=== PATIENT | male | born 1955 | race Caucasian/White ===

== ENCOUNTER 2024-11-17 08:03 | Observation (INO) ==
--- NOTE | 2024-11-04 13:24 | PAT Medication Instructions ---
Medication Instructions Date of Service November 04, 2024 Home Medications aspirin 81 mg tablet,delayed release 81 mg PO QAM jsayixj-jfifqsadndmyd-bnfjcmri 250 mg-250 mg-65 mg tablet (Excedrin Extra Strength) 1 tab PO Q6H PRN Pain cyanocobalamin (vitamin B-12) 2,000 mcg tablet,extended release 4,000 mcg PO DAILY hydralazine 25 mg tablet 25 mg PO TID lisinopril 5 mg tablet 5 mg PO PM metoprolol succinate 50 mg tablet,extended release 24 hr 50 mg PO BID nifedipine 30 mg tablet,extended release 24 hr 30 mg PO QAM pravastatin 40 mg tablet 40 mg PO QAM ASK your prescriber and surgeon aspirin 81 mg tablet,delayed release 81 mg PO QAM yjelzzi-ribjxkwhheunc-gertpjts 250 mg-250 mg-65 mg tablet (Excedrin Extra Strength) 1 tab PO Q6H PRN Pain DO NOT take the morning of surgery cyanocobalamin (vitamin B-12) 2,000 mcg tablet,extended release 4,000 mcg PO DAILY Take morning of surgery With a small sip of water, OTHERWISE NOTHING TO EAT OR DRINK AFTER MIDNIGHT: hydralazine 25 mg tablet 25 mg PO TID metoprolol succinate 50 mg tablet,extended release 24 hr 50 mg PO BID nifedipine 30 mg tablet,extended release 24 hr 30 mg PO QAM pravastatin 40 mg tablet 40 mg PO QAM Take evening before surgery hydralazine 25 mg tablet 25 mg PO TID lisinopril 5 mg tablet 5 mg PO PM metoprolol succinate 50 mg tablet,extended release 24 hr 50 mg PO BID Other Notes If you have any questions please call us at [phone] or [phone] or [phone] or [phone]
--- NOTE | 2024-11-09 14:58 | Anesthesiology Consultation ---
Date of Service November 09, 2024 Assessment & Plan (1) Encounter for pre-operative examination: - awaiting: - final surgeon ordered medical clearance, Deepak FISHER-PAT results to be faxed to office. - surgeon ordered PCP clearance 11/11/24: "...anterior cervical discectomy and fusion...may be cleared for upcoming procedure providing that his presurgical labs were within reasonable parameters and no significant EKG abnormalities...considered moderate risk..." - cardiology office clearance 11/03/24: "...cleared for proposed procedure at low cardiac risk based on reviewed Ck criteria..." Chart Review Chart Review: Pending: Refer to Additional Notes / Consult section and Patient seen in Pre Admission Testing Teaching & Discussion Pre-Anesthesia Teaching/Discussion Notes: Instructed NPO after midnight before surgery, except medications with 15 cc of water. Medication instructions provided according to the PAT guidelines. History Surgery Operation Date: 11/17/24 12:25 Proposed Procedures p C3-C4 Anterior Cervical Discectomy and Fusion - Benny Irvin DO Height/Weight Height: 6 ft Weight: 63.1 kg Allergies Allergy/AdvReac Type Severity Reaction Status Date / Time No Known Allergies Verified 11/04/24 12:18 Medications Home Medications Medication Instructions Recorded Confirmed Last Taken aspirin 81 mg tablet,delayed 81 mg PO QAM 11/04/24 11/04/24 Unknown release ldkifcp-znzjenamldxpu-vlbgygvd 250 1 tab PO Q6H PRN Pain 11/04/24 11/04/24 Unknown mg-250 mg-65 mg tablet (Excedrin Extra Strength) hydralazine 25 mg tablet 25 mg PO TID 11/04/24 11/04/24 Unknown lisinopril 5 mg tablet 5 mg PO PM 11/04/24 11/04/24 Unknown metoprolol succinate 50 mg 50 mg PO BID 11/04/24 11/04/24 Unknown tablet,extended release 24 hr nifedipine 30 mg tablet,extended 30 mg PO QAM 11/04/24 11/04/24 Unknown release 24 hr pravastatin 40 mg tablet 40 mg PO QAM 11/04/24 11/04/24 Unknown Past Medical History Medical History (Updated 11/09/24 @ 15:06 by Tatiana Pérez PA-C) Arthritis Chronic obstructive pulmonary disease no inhalers, well controlled per pt, just coughs "from time to time" DDD (degenerative disc disease), lumbar History of myocardial infarction (~2019) 2019 > follows with Dr. Bailey in [place] Hyperlipidemia Hypertension controlled, stable per pt Numbness of legs from neck pain per pt Patient denies h/o stroke, seizures, DM, blood clots/DVTs or blood transfusions. Exercise / Class Metabolic Activity II 4-5 Yardwork/Stairs/Walk up hill (denies chest discomfort or shortness of breath with one flight of stairs) Past Surgical History Surgical History History of colonoscopy Hx of cervical spine surgery with hardware, unsure of numbers, ROM limited to left side Hx of hand surgery right Hx of inguinal hernia repair Past Anesthesia History No Hx of Anesthesia Complications and No Family Hx of Anesthesia Complications History of PONV No Hx of PONV and No Hx of Motion Sickness Social History Smoking Status: Current every day smoker Smoking cigarettes per day: "few per day" > advised Do You Dip or Chew Tobacco: No Hx Alcohol Use: No Hx Substance Use: No substance use type: does not use Review of Systems Snoring, denies witnessed apneas. Patient denies chest pain, shortness of breath, dyspnea on exertion, reflux, fever, chills, cough, wheezing, or palpitations. Physical Exam Vital Signs Vitals BP 143/76 P 61 TEMP 98.3 SP02 94% on RA RESP 18 Physical Patient resting comfortably in chair in no acute distress, alert and oriented, responding appropriately throughout visit Full cervical extension range of motion without pain TMD 3.5 finger breadths Mallampati Score 2 Dentition: multiple missing teeth, denies chipped or loose teeth, caps/crowns, implants or bridges Lungs: normal respiratory effort. Good air movement, clear throughout to auscultation, no adventitious breath sounds Cardiac: regular rate and rhythm, no murmurs noted Carotid arteries: negative bruit bilat Lab Results Anesthesia Preop Results Results Anesthesia Widget: WBC 7.18 K/ul (4.8-10.8) 11/09/24 Hgb 15.7 g/dl (14.0-18.0) 11/09/24 Hct 44.5 % (42.0-52.0) 11/09/24 Plt 243 K/uL (130-400) 11/09/24 Na 142 mmol/L (136-145) 11/09/24 K 3.7 mmol/L (3.5-5.1) 11/09/24 Cl 107 mmol/L (98-107) 11/09/24 CO2 30 mmol/L (21-32) 11/09/24 BUN 20 mg/dl (6-23) 11/09/24 Creat 1.47 mg/dl (0.6-1.4) H 11/09/24 Glucose Level 104 mg/dl (70-99(Fasting)) H 11/09/24 PT 11.2 Seconds (9.0-12.0) 11/09/24 PTT 27 Seconds (21-31) 11/09/24 INR 1.0 (0.9-1.1) 11/09/24 Urine Color Dark Yellow 11/09/24 Urine Appearance Clear (Clear) 11/09/24 Urine pH 5.5 (4.5-7.5) 11/09/24 Urine Specific [place] 1.026 (1.000-1.030) 11/09/24 Urine Protein 2+ (Negative) H 11/09/24 Urine Glucose (UA) Negative (Negative) 11/09/24 Urine Ketones Trace (Negative) H 11/09/24 Urine Blood Negative (Negative) 11/09/24 Urine Nitrite Negative (Negative) 11/09/24 Urine Bilirubin Negative (Negative) 11/09/24 Urine Urobilinogen Negative (Negative) 11/09/24 Urine Leukocyte Esterase Negative (Negative) 11/09/24 Urine WBC (Auto) 0-5 /hpf (0-5) 11/09/24 Urine RBC (Auto) 3-5 /hpf (0-2) H 11/09/24 Urine Hyaline Casts (Auto) 3-5 /lpf (0-2) H 11/09/24 Urine Epithelial Cells (Auto) 0-2 /hpf (0-2) 11/09/24 Urine Bacteria (Auto) None Seen (None Seen) 11/09/24 Blood Type A Positive 11/09/24 Antibody Screen NEGATIVE 11/09/24 Testing Electrocardiogram Date: 11/09/24 Sinus bradycardia, rate 56 bpm Left axis deviation RBBB Chest X-Ray Date: 11/09/24 No acute findings.
[2024-11-17] MEDS ORDERED: LIDOCAINE 2% 2 ML VIAL/AMP(20MG/ML) INFIL ONE (08:31)
[2024-11-17] MEDS ORDERED: DEXAMETHASONE SOD INJ 4 MG/ML VIAL ONE (08:31)
[2024-11-17] MEDS ORDERED: PROPOFOL IV EMULSION 10 MG/ML 20 ML VIAL IV ONE (08:31)
[2024-11-17] MEDS ORDERED: ROCURONIUM BROMIDE 10 MG/ML 5 ML VIAL IV ONE (08:31)
[2024-11-17] MEDS ORDERED: ONDANSETRON INJ 2 MG/ML 2 ML VIAL ONE (08:31)
[2024-11-17] MEDS ORDERED: MIDAZOLAM HCL 1 MG/ML 2ML VIAL ONE (08:32)
[2024-11-17] MEDS ORDERED: SUGAMMADEX SODIUM 200 MG/2 ML VIAL IV ONE (08:32)
[2024-11-17] MEDS: LR 15ML/HR IV SCH (08:45)
[2024-11-17] MEDS: GABAPENTIN 300 MG CAP PO SCH (08:45)
[2024-11-17] MEDS: CeleBREX 200 MG CAP PO SCH (08:45)
[2024-11-17] MEDS: LR 60ML/HR IV SCH (08:45)
[2024-11-17] MEDS: ACETAMINOPHEN 500 MG TAB PO SCH (08:45)
--- NOTE | 2024-11-17 09:25 | History & Physical Bridge Note ---
Date of Service November 17, 2024 History & Physical Bridge Note I have examined the patient, reviewed the History & Physical and in the interval since the performance of the History & Physical I have noted the following changes of clinical significance: no changes noted
--- NOTE | 2024-11-17 09:26 | History & Physical Report ---
Date of Service November 17, 2024 Assessment & Plan (1) Myelopathy concurrent with and due to spinal stenosis of cervical region: Plan: C3-C4 anterior cervical discectomy and fusion History of Present Illness Chief Complaint: Neck and arm pain Primary Care Provider: Marques Marino This is a 69-year-old male presents with chronic persistent neck and arm pain and failed course of nonoperative care is here for surgical invention. Allergies Allergy/AdvReac Type Severity Reaction Status Date / Time No Known Allergies Verified 11/17/24 08:20 Home Medications Medication Instructions Recorded Confirmed Type aspirin 81 mg tablet,delayed 81 mg PO QAM 11/04/24 11/17/24 History release eismqdv-imceabruummjx-rcemrulg 250 1 tab PO Q6H PRN Pain 11/04/24 11/17/24 History mg-250 mg-65 mg tablet (Excedrin Extra Strength) hydralazine 25 mg tablet 25 mg PO TID 11/04/24 11/17/24 History lisinopril 5 mg tablet 5 mg PO PM 11/04/24 11/17/24 History metoprolol succinate 50 mg 50 mg PO BID 11/04/24 11/17/24 History tablet,extended release 24 hr nifedipine 30 mg tablet,extended 30 mg PO QAM 11/04/24 11/17/24 History release 24 hr pravastatin 40 mg tablet 40 mg PO QPM 11/04/24 11/17/24 History Past Med/Surg History Problem List (Updated 11/17/24 @ 09:26 by Benny Irvin DO) Myelopathy concurrent with and due to spinal stenosis of cervical region Encounter for pre-operative examination Medical History (Updated 11/17/24 @ 09:26 by Benny Irvin DO) Numbness of legs from neck pain per pt Arthritis DDD (degenerative disc disease), lumbar History of myocardial infarction (~2019) 2020 > follows with Dr. Bailey in [place] Hypertension controlled, stable per pt Hyperlipidemia Chronic obstructive pulmonary disease no inhalers, well controlled per pt, just coughs "from time to time" Surgical History Hx of hand surgery right Hx of cervical spine surgery with hardware, unsure of numbers, ROM limited to left side History of colonoscopy Hx of inguinal hernia repair Social History Smoking Status: Current every day smoker Tobacco Type: Cigars Cigarettes Per Day: "few per day" > advised; Second Hand Exposure: No; Do You Dip or Chew Tobacco: No; Tobacco Cessation Education Requested by Patient: No Hx Alcohol Use: No Hx Substance Use: No Preferred Language: Danish Communication Ability: Effective Equipment Detailer Required: No Beliefs That Will Affect Care: None Current Living Situation: Spouse Other Information That Helps Us Care for You: No Feels Safe at Home: Yes Safety Concerns: Feels Safe At This Time Assistive Devices: Glasses Physical Exam Physical Exam: Patient is alert and oriented heart regular rhythm Lungs clear Results & Data Results & Data Vital Signs (Past 12 Hours) Vital Signs Temp Pulse Resp BP Pulse Ox O2 Del Method 11/17/24 08:24 Room Air 11/17/24 08:23 36.5 C 57 L 20 152/93 H 98 Room Air
[2024-11-17] MEDS ORDERED: ATROPINE SULFATE 0.1 MG/ML 10ML SYR IV PRN (10:04)
[2024-11-17] MEDS ORDERED: PROMETHAZINE HCL 6.25 MG in SODIUM CHLORIDE 0.9% 50 ML IV PRN (10:04)
[2024-11-17] MEDS ORDERED: ONDANSETRON INJ 2 MG/ML 2 ML VIAL IV PRN (10:04)
[2024-11-17] MEDS: ceFAZolin 330 MG/ML 1 GM VIAL ONE (10:34)
[2024-11-17] MEDS: FLOSEAL HEMOSTATIC MATRIX 10ML TOP ONE (10:52)
--- NOTE | 2024-11-17 11:03 | Operative Report ---
Post Operative Report Pre & Post Diagnosis Operation Date: 11/17/24 09:35 Pre-Op Diagnosis: Myelopathy Concurrent with and Due to Spinal Stenosis of Cervical Region Post-Op Diagnosis: Myelopathy Concurrent with and Due to Spinal Stenosis of Cervical Region I identified the patient and participated in the time-out.: Yes Procedure Operation Date: 11/17/24 09:35 Actual Procedures #1 anterior cervical discectomy with bilateral foraminotomies C3-C4. #2 anterior cervical arthrodesis C3-C4. #3 placement of Spira integrated cage 7 mm in height filled with os design bone graft C3-C4. Surgeon Benny Irvin, Cardiology Rn Madelin Jackson Estimated Blood Loss 10 Findings Consistent with Post-Op Diagnosis Specimens None Indications This is a 69-year-old male who presents publish diagnosis of failed course of nonoperative care is here for surgical invention. Description of Procedure Patient was met with identified informed consent obtained. Patient was then taken to the operative suite underwent patient placed in spine position on the Chris table with head [place] head miller. All bony promises well-padded eyes inspected to ensure no external pressure placed upon them. This point the anterior cervical spine was prepped and draped in normal sterile fashion. The assistance of fluoroscopy identified the C3-C4 to space and a transverse incision was placed along the right anterior aspect of the cervical spine overlying his region. Blunt dissection with the assistance of bipolar electrocautery performed down to and exposing the anterior cervical spine at C3- C4. Complete discectomy of C3-C4 was then performed out to the uncovertebral joints bilaterally. [place] distracting pins were utilized to assist in visualization. I removed all posterior annular fibers and wanted to limit bilateral foraminotomies performed. Endplates burred to subcortical bleeding bone and a 7 mm Spira integrated cage tapped in position and screwed into place with fluoroscopic visualization. Incision was then copiously irrigated explored to ensure no damage to surrounding structures or remaining bleeding. 10 round TAQUERIA drain inserted. The incision was then closed with 2 Vicryl in the fascia and a 4 Monocryl for final skin closure. Steri-Strips sterile dressing placed. Patient waken taken to PACU in stable condition. Please note spinal cord monitoring visualized after procedure no changes noted. Madelin Jackson was present out the entire procedure and on the patient positioning complex portion of the surgery and final skin closure. I attest to the content of the Intraoperative Record and any orders documented therein. Any exceptions are noted below.
[2024-11-17] MEDS ORDERED: HYDROmorphone INJ 0.5 MG/0.5 ML SYR IV PRN ×2 (11:07)
--- NOTE | 2024-11-17 12:43 | Anesthesiology Progress Note ---
Date of Service November 17, 2024 Anesthesia Post Procedure Vital Signs Vital Signs: Temp Pulse Resp BP Pulse Ox O2 Del Method O2 Flow Rate 11/17/24 12:30 52 L 13 152/87 H 98 Nasal Cannula 2 11/17/24 12:20 51 L 14 154/88 H 99 Nasal Cannula 2 11/17/24 12:10 53 L 14 153/89 H 98 Nasal Cannula 2 11/17/24 12:00 55 L 13 151/104 H 97 Nasal Cannula 2 11/17/24 11:50 62 16 153/94 H 98 Nasal Cannula 2 11/17/24 11:40 59 L 13 146/92 H 97 Nasal Cannula 2 11/17/24 11:30 63 16 154/92 H 96 Nasal Cannula 2 11/17/24 11:20 36.0 C L 64 21 157/91 H 98 Nasal Cannula 2 11/17/24 08:24 Room Air 11/17/24 08:23 36.5 C 57 L 20 152/93 H 98 Room Air Pain Intensity Anterior Neck: Pain Intensity: 2 Transfer of Care Handoff Completed per policy Notes Mental Status: alert / awake / arousable Patient Amnestic to Procedure: Yes Nausea / Vomiting: adequately controlled Pain: adequately controlled Airway Patency, RR, SpO2: stable & adequate BP & HR: stable & adequate Hydration State: stable & adequate Anesthetic Complications: no major complications apparent
--- NOTE | 2024-11-17 13:19 | Fluoroscopy Report ---
FL cervical 2-3V CLINICAL HISTORY: C3-C4 ACDF COMPARISON STUDY: None FLUOROSCOPY TIME: 7 seconds FLUOROSCOPY IMAGES: 3 EXPOSURE DOSE: 0.7 mGy FINDINGS: Fluoroscopy was provided for cervical spine surgery. IMPRESSION: Intraoperative fluoroscopy. ACT 112: Negative or not required by law. Electronically signed by: Jose Montana M.D. 11/17/2024 1:18 PM
[2024-11-17] MEDS ORDERED: dexAMETHasone 8 MG in SYRINGE 0 ML IV PRN (14:17)
[2024-11-17] MEDS ORDERED: ACETAMINOPHEN 1,000 MG/100 ML VIAL IV PRN (14:17)
[2024-11-17] MEDS ORDERED: DO NOT ADMINISTER PNEUMOCOCCAL VACCINE PRN (14:17)
[2024-11-17] MEDS ORDERED: DO NOT ADMINISTER FLU VACCINE PRN (14:17)
[2024-11-17] MEDS ORDERED: RACEPINEPHRINE 2.25% NEBU SOLN 0.5 ML VIAL INH PRN (14:17)
[2024-11-17] MEDS: NSS + 20MEQ KCL 20 MEQ/1,000 ML BAG IV SCH (14:56)
[2024-11-17] MEDS: dexAMETHasone 6 MG in SYRINGE 0 ML IV SCH (15:25)
[2024-11-17] MEDS: PRAVASTATIN SOD 40 MG TAB PO SCH (19:34)
[2024-11-17] MEDS: METOPROLOL SUCC 50MG EXT REL TAB PO SCH (19:34)
[2024-11-18 07:12] VITALS: TEMP 97.9
[2024-11-18 07:56] VITALS: O2SAT 94
[2024-11-18] MEDS: NIFEdipine EXTENDED REL 30 MG TABCR PO SCH (08:17)
[2024-11-18] MEDS: ASPIRIN 81 MG ECTAB PO SCH (08:18)
--- NOTE | 2024-11-18 08:30 | Discharge Summary ---
Date of Service November 18, 2024 Admission HPI Per Admitting Provider This is a 69-year-old male presents with chronic persistent neck and arm pain and failed course of nonoperative care is here for surgical invention. Admission Exam (Per Admitting) Constitutional WD/WN, vitals as above + thin Eyes normal visual lazaro by confrontation ENMT external ear and nose normal, oropharynx normal Neck normal visual inspection Respiratory normal respiratory effort Cardiovascular Extremities: normal capillary refill Gastrointestinal (Abdomen) normal bowel sounds, soft, nontender, no hepatosplenomegaly Inspection/Auscultation: abdomen normal to inspection Musculoskeletal Spine: + limited cervical ROM Extremities: extremities normal to inspection and strength 5/5 throughout Skin normal turgor Neurologic normal touch/pain/proprioception and moves all extremities Psychiatric A+Ox3, euthymic affect Eye Contact: good eye contact Discharge Data Procedures Performed Operation Date: 11/17/24 09:35 Actual Procedures p C3-C4 Anterior Cervical Discectomy and Fusion, Spinal Cord Monitor(Not Applicable) - Benny Irvin, Hospital Course (1) Myelopathy concurrent with and due to spinal stenosis of cervical region: Tristian is being discharged home on postoperative day 1 status post ACDF C3-4. He states the numbness in his lower extremities has resolved. He is up and ambulatory around the room and voiding without issue. Denies any dysphonia or dysphagia. Pain is controlled Plan ACTIVITY RECOMMENDATIONS: SELF CARE INSTRUCTIONS AFTER CERVICAL FUSIONS 1. No smoking. Smoking drastically decreases the chance of a solid fusion. 2. No bending, lifting more than 5 pounds, or twisting (roll like a log when turning in bed). 3. You may shower 3 days after surgery. Thoroughly dry wound. Do not soak in the tub. 4. Cervical collar: Must be worn at all times including sleeping. You may remove the brace only to bath, eat and if you are sitting in a recliner. 5. Please walk as much as you can for exercise. Gradually increase the distance that you walk as your endurance increases. 6. You may return to previous diet. SPECIAL CARE INSTRUCTIONS: VERY IMPORTANT TO READ AND REVIEW A. Do not take any anti-inflammatory medications (i.e. Indocin, Advil, Aspirin, Naprosyn, Aleve, Motrin, etc.) as these may inhibit the chance of a solid fusion. Tylenol is okay to take. B. Your surgical incision has been closed with a cosmetic suture under the skin that will dissolve in about 6 weeks. In 14 days, you can use a pair of clean scissors and cut the suture that is left outside of the skin at the ends of your incision. C. Complications are uncommon, but please contact us if you have any signs or symptoms of: 1. wound infection (fever higher than 102.5 degrees F, redness, separation of wound, drainage, or increasing pain from the incision) 2. blood clots in legs (pain, swelling, redness and warmth in legs) 3. urinary tract infection (fever higher than 102.5 degrees, burning upon urination or increased frequency of urination) 4. nerve problems (inability to walk on your toes or heels, numbness, loss of bowel or bladder control) 5. any other symptoms that concern you. D. Please call the office at if you have any concerns or questions about your operation or recovery. MANAGING PAIN AFTER SPINAL SURGERY 1. Narcotic medication is intended for short-term use and will be provided for surgical pain. Surgical pain usually lasts for a period of 4-6 weeks. Narcotic medication includes Percocet, Vicodin, Darvocet, Tylenol #3 or Lortab. 2. Longer-term pain is more appropriately treated with non-narcotic medication such as Tylenol ES. 3. Muscle spasm is not appropriately treated with narcotics. Muscle relaxers such as Soma, Flexeril or Skelaxin can be used along with Tylenol ES. 4. Remember that we all live with some "aches and pains". This is not unusual or uncommon after an injury or as we get older. 5. We will provide appropriate medication within the normal guidelines of their prescribed use. We will also be very cautious and aware of potential abuse and extended duration of patients' medication needs. 6. Please allow 2-3 days to process refills. Prescriptions will not be mailed but must be picked up at the office. FOLLOW UP VISIT: Keep your scheduled follow-up appointment. Any questions, please call the office at .
[2024-11-18 08:58] VITALS: BP 114/64; PULSE 55; RESP 17
== END 2024-11-18 10:20 | disposition home or self-care (01) ==
LOC: 3N 08:03 → ASU 08:03